=== PATIENT | male | born 1955 | race Caucasian/White ===

== ENCOUNTER 2018-08-23 22:13 | Emergency (ER) | payer OTHER, MEDICAID ==
[~2018-08-23] VITALS: Ht 170.2 cm; Wt 65.3 kg
[2018-08-23 22:17] VITALS: BP 137/78
--- NOTE | 2018-08-23 22:17 | NUR ---
PT PLACED INTO BED 4 BY EMS.
--- NOTE | 2018-08-23 22:22 | NUR ---
63/M [place]. PT STATED THAT HE WAS "AT THE PARK MINDING MY OWN BUSINESS" WHEN HIS "SHOWED UP ASKING TO GO TO [employer] [facility]ORE," PT STATED HE FELL BACKWARDS AND LANDED HIS HEAD ON ASPHALT. PT'S STATED THAT PT WAS CLEARED BY PARAMEDICS THE FIRST TIME, THEN STATED THAT PT'S NEIGHBOR NOTICED THE PT "WAS PASSED OUT IN THE STREET." PT ADMITS TO DRINKING 2-3 24OZ BEERS TONIGHT. APPROX 6CM X 6CM HEMATOMA WITH BLEEDING CONTROLLED NOTED ON OCCIPITAL HEAD. PT REPORTS L LATERAL THIGH PAIN, SKIN INTACT, NO REDNESS, DEFORMITY OR SWELLING. PT DENIES LOC AT TIME OF FALL, DENIES CP, SOB, N/V. AOX4, GCS 15, SPEECH MILDLY SLURRED, SKIN NORMAL DRY LOOSE. RR EVEN AND UNLABORED. LUNG SOUNDS CLEAR BL. BLOOD GLUCOSE 86. HX ALCOHOL ABUSE, DENIES HX OF DM.
--- NOTE | 2018-08-23 22:22 | NUR ---
REPORT GIVEN TO CORINNE GATES.
--- NOTE | 2018-08-23 23:07 | NUR ---
Patient being evaluated by physician at bedside.
[2018-08-23] MEDS ORDERED: MORPHINE SULFATE 4 MG/ML SYR IM ONE (23:15)
[2018-08-24] MEDS ORDERED: MORPHINE SULFATE 4 MG/ML SYR IM ONE (00:05)
[2018-08-24] MEDS ORDERED: NACL 0.9% 1,000 ML IV ONE (00:15)
[2018-08-24] MEDS ORDERED: MORPHINE SULFATE 4 MG/ML SYR IVP ONE (00:15)
--- NOTE | 2018-08-24 00:20 | NUR ---
ER AT BEDSIDE
--- NOTE | 2018-08-24 00:22 | NUR ---
PT C/O OCCIPITAL HEADACHE DESPITE MORPHINE IM. PT AT BEDSIDE. ER MD MADE AWARE. ADMINISTERED MORHPINE IVP AND 1L NS BOLUS ORDERED. PT TOLERATED WELL. ALL NEEDS MET AT THIS TIME.
[2018-08-24 01:04] VITALS: BP 113/60
== END 2018-08-24 01:04 | disposition home or self-care (01) ==
LOC: MED 22:13
DX: S00.01XA Abrasion of scalp, initial encounter (principal); Z98.890 Other specified postprocedural states; W19.XXXA Unspecified fall, initial encounter; Y93.89 Activity, other specified; Y92.89 Other specified places as the place of occurrence of the external cause; Y99.8 Other external cause status
CPT/HCPCS: 70450; 96372; 96374; 99284; J2270; J7030